=== PATIENT | female | born 1990 | race Caucasian/White ===

== ENCOUNTER 2022-01-25 08:00 | Outpatient (CLI) | payer OTHER ==
--- NOTE | 2022-01-25 15:44 | XRAY Report ---
PROCEDURE: Chest 2 View X-Ray INDICATIONS: COVID-19 PNEUMONIA TECHNIQUE: 2 view(s) of the chest. COMPARISON: None. FINDINGS: Surgical changes and devices: None. Lungs and pleura: No pleural effusions or pneumothorax. Lungs are clear. Mediastinum: Mediastinal contours are normal. Heart size is normal. Bones and chest wall: No suspicious bony abnormalities. Soft tissues appear unremarkable. IMPRESSION: No focal infiltrate, pleural effusion or pneumothorax. Reviewed by: Patricio Bingham MD on 01/25/2022 3:43 PM PST Approved by: Patricio Bingham MD on 01/25/2022 3:43 PM PST Station ID: [id number]
== END 2022-01-25 23:59 ==
LOC: DI.N 08:00
PROVIDERS: ATTEND Nurse Practitioner
DX: U07.1 COVID-19 (principal); J12.82 Pneumonia due to coronavirus disease 2019

== ENCOUNTER 2022-04-20 13:08 | Outpatient (CLI) | payer OTHER | END 2022-04-20 23:59 | disposition home or self-care (01) | LOC: LAB 13:08 | PROVIDERS: ATTEND Nurse Practitioner | DX: N39.0 Urinary tract infection, site not specified (principal) | CPT/HCPCS: 87086; 87181 ==